=== PATIENT | female | born 1980 | race Caucasian/White ===

== ENCOUNTER 2023-12-01 18:17 | Outpatient (REF) | payer OTHER, SELFPAY ==
--- NOTE | 2023-12-01 15:00 | PAPFT_PTH ---
PATIENT: Moraima Martinez LOC: [facility] U#:[id number] AGE/SX: 43/F ROOM: RE12/01/[address]: Nicki Zhang MD : 1980 BED: DIS: 12/01/2023 SPEC #: [id number] RECD: 12/01/23 18:19 STATUS: ELLIOT REQ #: [id number] RICHA: 12/01/23 15:[address]: Nicki Zhang DEPT: [facility] Cytology RECD BY: Marielle Taylor ENTERED: 12/01/23 18:19 SP TYPE: PAPFT OT DR: Unknown,Unknown Tissues: 1 - CX/ENDOCX FOR PAP SMEARS Procedures: PAP THIN PREP/[facility] Screening HPV DNA PROBE Comments: [id number]
== END 2023-12-01 18:18 | disposition home or self-care (01) ==
LOC: LBN 18:17
PROVIDERS: Visit Provider Obstetrics & Gynecology
DX: Z97.5 Presence of (intrauterine) contraceptive device (principal)
CPT/HCPCS: 88142; 87624